=== PATIENT | female | born 1985 | race Caucasian/White ===

== ENCOUNTER 2019-12-19 08:15 | Emergency (ER) | payer OTHER ==
[~2019-12-19] VITALS: Ht 160 cm; Wt 86.2 kg
[2019-12-19 08:22] VITALS: BP 146/77
== END 2019-12-19 09:28 | disposition home or self-care (01) ==
LOC: ER 08:15
DX: H81.12 Benign paroxysmal vertigo, left ear (principal); J45.909 Unspecified asthma, uncomplicated